=== PATIENT | female | born 1970 ===

== ENCOUNTER 2018-08-02 23:06 | Emergency (ER) | payer SELFPAY ==
[2018-08-02 23:06] VITALS: BMI 30.2
[2018-08-02 23:25] VITALS: O2SAT 99
[2018-08-03] MEDS ORDERED: Naproxen 500 MG TAB PO ONE ×2 (00:51→01:51)
[2018-08-03] MEDS ORDERED: Tdap Vaccine 0.5 ml Vial (10-64 yrs) IM ONE ×2 (00:52→01:51)
--- NOTE | 2018-08-03 03:15 | ED PDOC ---
Lower Extremity Pain/Injury Time Seen by Provider: 08/03/18 00:28 Chief Complaint (Nursing): Lower Extremity Problem/Injury Chief Complaint (Provider): Lower Extremity Problem/Injury History Per: Patient History/Exam Limitations: no limitations Onset/Duration Of Symptoms: Days Current Symptoms Are (Timing): Still Present Additional Complaint(s): 48 y/o female presents to the ED for evaluation of lower extremity pain. Patient reports that earlier today, she tripped and fell injuring her left foot and both knees. Patient states she had surgery performed on her left foot by Dr. Beth to fix a toe deformity. Otherwise, patient denies numbness, tingling, head injury and other injury. PMD: Melquiades Song Past Medical History Reviewed: Historical Data, Nursing Documentation, Vital Signs Vital Signs: Last Vital Signs Temp 98.1 F 08/02/18 23:22 Pulse 83 08/02/18 23:22 Resp 16 08/02/18 23:22 BP 133/76 08/02/18 23:22 Pulse Ox 99 08/02/18 23:22 Primary Care Provider: FAMILY PROVIDER,NO - Medical History PMH: No Chronic Diseases - Surgical History Surgical History: No Surg Hx - Family History Family History: States: Unknown Family Hx - Home Medications Home Medications: Ambulatory Orders Medication Instructions Recorded Ibuprofen [Motrin] 600 mg PO PRN PRN 05/06/18 Cephalexin [cephalexin] 500 mg PO TID 05/12/18 oxyCODONE/Acetaminophen [Percocet 1 tab PO .Q4-6 PRN 05/12/18 5/325 mg Tab] - Allergies Allergies/Adverse Reactions: Allergies Allergy/AdvReac Type Severity Reaction Status Date / Time No Known Allergies Allergy Verified 08/02/18 23:22 Review of Systems ROS Statement: Except As Marked, All Systems Reviewed And Found Negative Musculoskeletal: Positive for: Leg Pain, Foot Pain Neurological: Negative for: Numbness Physical Exam - Reviewed Nursing Documentation Reviewed: Yes Vital Signs Reviewed: Yes - Physical Exam Appears: Positive for: No Acute Distress Pulses-Dorsalis Pedis (L): 2+ Pulses-Dorsalis Pedis (R): 2+ Extremity: Positive for: Normal ROM (Full ROM actively but with pain. ), Tenderness (bilateral knees with minima tenderness. nontender left foot), Deformity, Swelling (bilateral knees with minimal swelling), Other (superficial abrasions noted to the bilateral knees. ) - ECG O2 Sat by Pulse Oximetry: 99 (RA) Pulse Ox Interpretation: Normal Medical Decision Making Medical Decision Making: Time: 51 Plan: -- Knee 3 Views BI XR -- Adacel (10-64 yrs) 0.5 ml IJ -- Naproxen 500 mg PO -- Foot Left 3 Views XR EXAM: CR left foot, 3 View. CLINICAL HISTORY: Trauma COMPARISON: CR\SD - FOOT LEFT 3 VIEWS ROUTINE - 06/23/2018 02:30 PM EDT FINDINGS: BONES: Pin which was previously traversing 2nd phalanges has been removed. No acute fracture. JOINTS: The joint spaces appear within normal limits. No dislocation. SOFT TISSUES: The soft tissues are unremarkable. MISCELLANEOUS: Two screws are noted in the distal 1st and 2nd metatarsals. IMPRESSION: 1. Two screws are noted in the distal 1st and 2nd metatarsals. 2. Pin which was previously traversing 2nd phalanges has been removed. 3. No acute fracture. Electronically signed on August 03, 2018 3:11:36 AM EDT by: Lee Howe M.D., M.B.A., Certified By [employer] Trained MRI and CT Specialist EXAM: CR bilateral Knees, 2 View. CLINICAL HISTORY: Trauma COMPARISON: None provided. FINDINGS: BONES: No acute fracture or aggressive appearing osseous lesion. JOINTS: No knee effusion. No dislocation. Mild DJD. SOFT TISSUES: The soft tissues are unremarkable. IMPRESSION: Mild DJD. No acute osseous abnormality evident on examination of the bilateral knees. No acute fracture or dislocation. Electronically signed on August 03, 2018 3:12:56 AM EDT by: Lee Howe M.D., M.B.A., Certified By [employer] Trained MRI and CT Specialist Knee immobilized in immobilizer applied by page technician. Crutches and crutch walking instructions provided. Advised to f/u with ortho for further evaluation but is to return to ED immedaitely if symptoms worsen. Scribe Attestation: Documented by Luis Cantu, acting as a scribe Tavon Roe PA-C. Provider Scribe Attestation: All medical record entries made by the Scribe were at my direction and personally dictated by me. I have reviewed the chart and agree that the record accurately reflects my personal performance of the history, physical exam, medical decision making, and the department course for this patient. I have also personally directed, reviewed, and agree with the discharge instructions and disposition. Disposition - Clinical Impression Clinical Impression: Knee injury - Patient ED Disposition Is Patient to be Admitted: No - Disposition Referrals: Sid Kenyon III, MD [Staff Provider] - [facility] [Outside] [facility] [place] [Outside] Disposition: Routine/Home Disposition Time: 03:31 Condition: STABLE Additional Instructions: FOLLOW UP WITH ORTHOPEDIST FOR FURTHER EVALUATION RETURN TO ED IMMEDIATELY IF SYMPTOMS WORSEN Instructions: Knee Sprain (DC) Forms: [email or web address] (Citizen Of [place])
[2018-08-03 04:16] VITALS: BP 130/77; PULSE 65; RESP 22; TEMP 97.5
--- NOTE | 2018-08-03 10:43 | RAD ---
Date of service: 08/03/2018 PROCEDURE: Bilateral Knee Radiographs. HISTORY: trauma COMPARISON: None. TECHNIQUE: 4 views obtained. FINDINGS: BONES: Right Knee: Normal. No fracture. Left Knee: Normal. No fracture. JOINTS: Right Knee: Normal. No osteoarthritis. Left knee: Normal. No osteoarthritis. SOFT TISSUES: Right Knee: Normal. Left Knee: Normal. JOINT EFFUSION: Right Knee: None. Left Knee: None. OTHER FINDINGS: None. IMPRESSION: Normal radiographs of the knees.
--- NOTE | 2018-08-03 10:48 | RAD ---
Date of service: 08/03/2018 PROCEDURE: Left Foot Radiographs. HISTORY: trauma COMPARISON: None. TECHNIQUE: 3 views obtained. FINDINGS: BONES: Status post osteotomy distal aspect 1st and 2nd metatarsal diaphysis. Surgical pin seen through 2nd digit has been removed. There is no acute fracture. There has been osteotomy of the distal aspect 2nd proximal phalanx. No additional abnormality. JOINTS: Normal. SOFT TISSUES: Normal. OTHER FINDINGS: None. IMPRESSION: Status post interval removal of surgical pin in 2nd digit. Osteotomy distal 1st and 2nd metatarsal and distal aspect 2nd proximal phalanx.
== END 2018-08-03 03:38 | disposition home or self-care (01) ==
LOC: H.ER 23:06
DX: S89.90XA Unspecified injury of unspecified lower leg, initial encounter (principal); W01.0XXA Fall on same level from slipping, tripping and stumbling without subsequent striking against object, initial encounter